=== PATIENT | female | born 1955 | race Caucasian/White ===

== ENCOUNTER 2019-07-05 17:59 | Emergency (ER) | payer MEDICARE, OTHER ==
[~2019-07-05] VITALS: Ht 166 cm; Wt 91.0 kg
[2019-07-05] MEDS ORDERED: FAMO20TA5 (18:10)
[2019-07-05] MEDS ORDERED: PARO40TA3 (18:10)
[2019-07-05] MEDS ORDERED: LISI10TA2 (18:10)
[2019-07-05] MEDS ORDERED: AMIT25TA9 (18:10)
[2019-07-05] MEDS ORDERED: ALPR0.5T7 (18:10)
--- NOTE | 2019-07-05 18:21 | ED Chest Pain ---
General Chief Complaint: Chest Pain Stated Complaint: CHEST PAIN Nursing Triage Note: Left sided chest pain starting while walking down stairs, radiating to left shoulder and back. Nursing Sepsis Screen: No Definite Risk Source: patient Exam Limitations: no limitations History of Present Illness Date Seen by Provider: July 05, 2019 Time Seen by Provider: 18:00 Initial Comments Patient is a 61 YO female with cardiac risk factors of HTN, smoking, obesity and family hx who presents with chest pain upon walking down steps. Pain is described sharp, pleuritic located over the left side of [place] radiating to left shoulder. Symptoms associated with shortness of breath that resolved prior to ED arrival. Patient also reports epigastric abdominal pain with nausea slipping and then at night. Denies leg pain, swelling. No history of DVT PE. No cough, sore throat, fever chills, sweats. No abdominal pain or tenderness. Previous cholecystectomy and hysterectomy. No other acute symptoms or complaints. Timing/Duration: 1/2 hour Severity/Quality: moderate Location: substernal, shoulder Radiation: shoulders Activities at Onset: other (walking) Prior CP/Workup: no prior chest pain ASA po MUSIC MANAGER: No NTG SL MUSIC MANAGER: No Associated Symptoms: denies symptoms Allergies and Home Medications Allergies Coded Allergies: Latex, Natural Rubber (Verified Allergy, Unknown, 07/05/19) fluconazole (Verified Allergy, Unknown, Rash, 07/05/19) Patient Home Medication List Home Medication List Reviewed: Yes Review of Systems Review of Systems Constitutional: no symptoms reported, see HPI EENTM: No Symptoms Reported Respiratory: See HPI Cardiovascular: See HPI Gastrointestinal: See HPI Genitourinary: No Symptoms Reported Musculoskeletal: no symptoms reported Skin: no symptoms reported Psychiatric/Neurological: No Symptoms Reported, See HPI Endocrine: No Symptoms Reported, See HPI Past Dbwdwzw-Txnirb-Lrzdaz Hx Past Med/Social Hx: Reviewed Nursing Past Med/Soc Hx Patient Social History Alcohol Use: Regular Use Alcohol Beverage of Choice: Beer Recreational Drug Use: No Smoking Status: Current Everyday Smoker Type Used: Cigarettes Recent Foreign Travel: No Contact w/Someone Who Travel: No Recent Infectious Disease Expo: No Past Medical History Surgeries: Yes Gallbladder, Hysterectomy Respiratory: No Cardiac: Yes Hypertension Neurological: No Genitourinary: No Gastrointestinal: Yes Gastroesophageal Reflux, Gall Bladder Disease Musculoskeletal: No Endocrine: No HEENT: No Cancer: No Psychosocial: Yes Anxiety, Depression Blood Disorders: No Physical Exam Vital Signs Vital Signs - First Documented 07/05/19 18:12 Temp 36.8 Pulse 99 Resp 20 B/P (MAP) 144/93 (110) Pulse Ox 90 O2 Delivery Room Air Capillary Refill : Less Than 3 Seconds Height, Weight, BMI Height: '" Weight: lbs. oz. 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 Norm as Tested Skin: Normal Color, Warm/Dry Focused Exam Sepsis Stage: Ruled Out Progress/Results/Core Measures Results/Orders Lab Results Laboratory Tests Test 07/05/19 18:15 Range/Units White Blood Count 7.1 4.3-11.0 10^3/uL Red Blood Count 4.64 4.35-5.85 10^6/uL Hemoglobin 15.7 11.5-16.0 G/DL Hematocrit 46 35-52 % Mean Corpuscular Volume 98 80-99 FL Mean Corpuscular Hemoglobin 34 25-34 PG Mean Corpuscular Hemoglobin Concent 35 32-36 G/DL Red Cell Distribution Width 13.4 10.0-14.5 % Platelet Count 230 130-400 10^3/uL Mean Platelet Volume 10.4 7.4-10.4 FL Neutrophils (%) (Auto) 51 42-75 % Lymphocytes (%) (Auto) 35 12-44 % Monocytes (%) (Auto) 11 0-12 % Eosinophils (%) (Auto) 2 0-10 % Basophils (%) (Auto) 1 0-10 % Neutrophils # (Auto) 3.6 1.8-7.8 X 10^3 Lymphocytes # (Auto) 2.5 1.0-4.0 X 10^3 Monocytes # (Auto) 0.8 0.0-1.0 X 10^3 Eosinophils # (Auto) 0.2 0.0-0.3 10^3/uL Basophils # (Auto) 0.1 0.0-0.1 10^3/uL D-Dimer 0.40 0.00-0.49 UG/ML Sodium Level 138 135-145 MMOL/L Potassium Level 4.1 3.6-5.0 MMOL/L Chloride Level 102 98-107 MMOL/L Carbon Dioxide Level 21 21-32 MMOL/L Anion Gap 15 H 5-14 MMOL/L Blood Urea Nitrogen 7 7-18 MG/DL Creatinine 1.05 0.60-1.30 MG/DL Estimat Glomerular Filtration Rate 53 BUN/Creatinine Ratio 7 Glucose Level 102 70-105 MG/DL Calcium Level 9.8 8.5-10.1 MG/DL Corrected Calcium 9.5 8.5-10.1 MG/DL Total Bilirubin 0.4 0.1-1.0 MG/DL Aspartate Amino Transf (AST/SGOT) 71 H 5-34 U/L Alanine Aminotransferase (ALT/SGPT) 103 H 0-55 U/L Alkaline Phosphatase 84 40-136 U/L Troponin I < 0.30 <0.30 NG/ML Total Protein 6.9 6.4-8.2 GM/DL Albumin 4.4 3.2-4.5 GM/DL Lipase 30 8-78 U/L My Orders Orders - CARLTON ALBARRAN DO Cbc With Automated Diff (07/05/19 18:10) Comprehensive Metabolic Panel (07/05/19 18:10) Lipase (07/05/19 18:10) Ekg Tracing (07/05/19 18:10) Chest 1 View Ap/Pa Only (07/05/19 18:10) Troponin I Fs (07/05/19 18:10) Probnp Fs (07/05/19 18:10) Fibrin Degradation Products (07/05/19 18:10) Famotidine Tablet (Pepcid Tablet) (07/05/19 18:45) Aspirin Tablet (Aspirin Tablet) (07/05/19 18:45) Ondansetron Oral Dissolve Tab (Zofran (07/05/19 18:49) Antacid Suspension (Mylanta Suspension (07/05/19 19:00) Lidocaine 2% Viscous 15 Ml (Xylocaine Vi (07/05/19 19:00) Lipase (07/05/19 18:56) Medications Given in ED Current Medications Medications Dose Ordered Sig/Arvin Route Start Time Stop Time Status Last Admin Dose Admin Al Hydrox/Mg Hydrox/Simethicone 30 ml ONCE ONCE PO 07/05/19 19:00 07/05/19 19:01 DC 07/05/19 18:55 30 ML Aspirin 325 mg ONCE ONCE PO 07/05/19 18:45 07/05/19 18:46 DC 07/05/19 18:56 325 MG Famotidine 20 mg ONCE ONCE PO 07/05/19 18:45 07/05/19 18:46 DC 07/05/19 18:56 20 MG Lidocaine HCl 5 ml ONCE ONCE PO 07/05/19 19:00 07/05/19 19:01 DC 07/05/19 18:55 5 ML Vital Signs/I&O 07/05/19 07/05/19 18:12 18:15 Temp 36.8 Pulse 99 Resp 20 B/P (MAP) 144/93 (110) Pulse Ox 90 O2 Delivery Room Air Room Air Blood Pressure Mean: 110 Departure Communication (Admissions) EKG: Sinus rhythm, inferior Q waves, no acute ST elevation. Limited interpretation due to baseline artifact. CXR:NAD Patient resting and asymptomatic in the emergency department. EKG, labs pending. Heart score 4. Conditions for transfer to cardiac facility for additional monitoring and testing. Patient declines transfer. States her symptoms resolved with treatment emergency Department prefers to follow-up with her PCP next week. She understands that underlying coronary disease is Ruled out and that she is at risk for HI, and disability. Troponin precautions reviewed. Patient verbalizes understanding and agreement discharge instructions prior to departure. Impression Primary Impression: Chest pain Disposition: HOME, SELF-CARE Condition: Improved Departure-Patient Inst. Patient Instructions: Chest Pain (DC) Add. Discharge Instructions: You were evaluated in the ED for chest pain. Lab, EKG and imaging were obtained and are nondiagnostic. Please increase Prilosec to 40 mg daily, take newly prescribed medications as directed, and eliminate alcohol and smoking. Follow up with your PCP early next week for additional screening. Return to the ED if new or worsening symptoms. All discharge instructions reviewed with patient and/or family. Voiced understanding. Scripts Metoclopramide HCl (Metoclopramide HCl) 10 Mg Tablet 10 MG PO QID, #40 TAB Prov: CARLTON ALBARRAN DO 07/05/19 Sucralfate (Carafate) 1 Gm Tablet 1 GM PO QID, #120 TAB Prov: CARLTON ALBARRAN DO 07/05/19 CARLTON ALBARRAN DO July 05, 2019 18:21
[2019-07-05 18:28] LABS: BASOPHILS # (AUTO) 0.1 10^3/uL (0.0-0.1); BASOPHILS % (AUTO) 1 % (0-10); EOSINOPHILS # (AUTO) 0.2 10^3/uL (0.0-0.3); EOSINOPHILS % (AUTO) 2 % (0-10); HEMATOCRIT 46 % (35-52); HEMOGLOBIN 15.7 G/DL (11.5-16.0); LYMPHOCYTES # (AUTO) 2.5 X 10^3 (1.0-4.0); LYMPHOCYTES % (AUTO) 35 % (12-44); MEAN CORPUSCULAR HEMOGLOBIN 34 PG (25-34); MEAN CORPUSCULAR HGB CONC 35 G/DL (32-36); MEAN CORPUSCULAR VOLUME 98 FL (80-99); MEAN PLATELET VOLUME 10.4 FL (7.4-10.4); MONOCYTES # (AUTO) 0.8 X 10^3 (0.0-1.0); MONOCYTES % (AUTO) 11 % (0-12); NEUTROPHILS # (AUTO) 3.6 X 10^3 (1.8-7.8); NEUTROPHILS % (AUTO) 51 % (42-75); PLATELET COUNT 230 10^3/uL (130-400); RED CELL DISTRIBUTION WIDTH 13.4 % (10.0-14.5); WHITE BLOOD COUNT 7.1 10^3/uL (4.3-11.0)
--- NOTE | 2019-07-05 18:33 | Diagnostic Imaging Report ---
INDICATION: Chest pain and palpitations FINDINGS: The heart and lungs appeared normal. No failure, effusion or pneumothorax. IMPRESSION: Negative Dictated by: Dictated on workstation # [id number]
[2019-07-05] MEDS ORDERED: ASPIRIN 325 MG (5 GR) TABLET PO ONE (18:45)
[2019-07-05] MEDS ORDERED: FAMOTIDINE 20 MG (PEPCID) TABLET PO ONE (18:45)
[2019-07-05] MEDS ORDERED: ONDANSETRON 4 MG (ZOFRAN) ORAL DISSOLVE TAB PO STA (18:49)
[2019-07-05 18:50] LABS: CARBON DIOXIDE 21 MMOL/L (21-32); CHLORIDE 102 MMOL/L (98-107); POTASSIUM 4.1 MMOL/L (3.6-5.0); SODIUM 138 MMOL/L (135-145)
[2019-07-05 18:51] LABS: ALANINE AMINOTRANSFERASE 103 U/L (0-55); ALBUMIN 4.4 GM/DL (3.2-4.5); ALKALINE PHOSPHATASE 84 U/L (40-136); BILIRUBIN,TOTAL 0.4 MG/DL (0.1-1.0); BUN/CREATININE RATIO 7; CALCIUM 9.8 MG/DL (8.5-10.1); CREATININE SERUM 1.05 MG/DL (0.60-1.30); GFR ESTIMATED 53; GLUCOSE 102 MG/DL (70-105); LIPASE 30 U/L (8-78); TOTAL PROTEIN 6.9 GM/DL (6.4-8.2)
[2019-07-05] MEDS ORDERED: ANTACID SUSP 30 ML UDC (MYLANTA) PO ONE (19:00)
[2019-07-05] MEDS ORDERED: LIDOCAINE 2% VISCOUS 15 ML UDC PO ONE (19:00)
--- OUTSIDE RECORDS SUMMARY | 2019-07-05 19:44 | XMS REPORT | Continuity of Care Document ---
Author Organization Unknown Address Unknown Phone Unavailable Allergies There is no data. Medications There is no data. Problems There is no data. Procedures There is no data. Results Test Result Range TESTOSTERONE, TOTAL (WOMEN, CHILDREN, HY POGONADAL MALES) - 07/17/18 10:09 TESTOSTERONE, TOTAL, LC/MS/MS 30 ng/dL 2-45 FREE TESTOSTERONE 1.7 pg/mL 0.1-6.4 PROGESTERONE - 07/25/18 14:19 PROGESTERONE 0.6 ng/mL NRG DHEA - 07/25/18 14:19 DHEA SULFATE 192 mcg/dL 12-133 ESTRONE, LC/MS/MS - 07/25/18 14:19 ESTRONE 65 pg/mL NRG PDM - 09 PANEL (PROFILE 1) - 06/12/19 11 :47 Prescribed Drug 1 Xanax(TM) NRG Creatinine 20.1 mg/dL > or = 20.0 pH 6.3 4.5-9.0 Oxidant NEGATIVE mcg/mL <200 Amphetamines NEGATIVE ng/mL <500 medMATCH Amphetamines CONSISTENT NRG Benzodiazepines POSITIVE ng/mL <100 Marijuana Metabolite NEGATIVE ng/mL <20 medMATCH Marijuana Metab CONSISTENT NRG Cocaine Metabolite NEGATIVE ng/mL <150 medMATCH Cocaine Metab CONSISTENT NRG Opiates NEGATIVE ng/mL <100 medMATCH Opiates CONSISTENT NRG Oxycodone NEGATIVE ng/mL <100 medMATCH Oxycodone CONSISTENT NRG COMMENT NRG Alphahydroxyalprazolam 58 ng/mL <25 medMATCH aOH alprazolam CONSISTENT NRG Alphahydroxymidazolam NEGATIVE ng/mL < 50 medMATCH aOH midazolam CONSISTENT NRG Alphahydroxytriazolam NEGATIVE ng/mL < 50 medMATCH aOH triazolam CONSISTENT NRG Aminoclonazepam NEGATIVE ng/mL <25 medMATCH Aminoclonazepam CONSISTENT NRG Hydroxyethylflurazepam NEGATIVE ng/mL <50 medMATCH OH,Et flurazepam CONSISTENT NR G Lorazepam NEGATIVE ng/mL <50 medMATCH Lorazepam CONSISTENT NRG Nordiazepam NEGATIVE ng/mL <50 medMATCH Nordiazepam CONSISTENT NRG Oxazepam NEGATIVE ng/mL <50 medMATCH Oxazepam CONSISTENT NRG Temazepam NEGATIVE ng/mL <50 medMATCH Temazepam CONSISTENT NRG Barbiturates NEGATIVE ng/mL <300 medMATCH Barbiturates CONSISTENT NRG Methadone Metabolite NEGATIVE ng/mL <100 medMATCH Methadone Metab CONSISTENT NRG Phencyclidine NEGATIVE ng/mL <25 medMATCH Phencyclidine CONSISTENT NRG Complete blood count (CBC) with automate d white blood cell (WBC) differential - 07/05/19 18:15 Blood leukocytes automated count (number/volume) 7.1 10*3/uL 4.3-11.0 Blood erythrocytes automated count (number/volume) 4.64 10*6/uL 4.35-5.85 Venous blood hemoglobin measurement (mass/volume) 15.7 g/dL 11.5-16.0 Blood hematocrit (volume fraction) 46 % 35-52 Automated erythrocyte mean corpuscular volume 98 [ foz_us] 80-99 Automated erythrocyte mean corpuscular h emoglobin (mass per erythrocyte) 34 pg 25-34 Automated erythrocyte mean corpuscular h emoglobin concentration measurement (mass/volume) 35 g/dL 32-36 Automated erythrocyte distribution width ratio 13. 4 % 10.0- 14.5 Automated blood platelet count (count/volume) 230 10*3/uL 130-400 Automated blood platelet mean volume measurement 10.4 [foz_us] 7.4-10.4 Automated blood neutrophils/100 leukocytes 51 % 42-75 Automated blood lymphocytes/100 leukocytes 35 % 12-44 Blood monocytes/100 leukocytes 11 % 0-12 Automated blood eosinophils/100 leukocytes 2 % 0-10 Automated blood basophils/100 leukocytes 1 % 0-10 Blood neutrophils automated count (number/volume) 3.6 10*3 1.8-7.8 Blood lymphocytes automated count (number/volume) 2.5 10*3 1.0-4.0 Blood monocytes automated count (number/volume) 0. 8 10*3 0.0-1.0 Automated eosinophil count 0.2 10*3/uL 0 .0-0.3 Automated blood basophil count (count/volume) 0.1 10*3/uL 0.0-0.1 Encounters ACCT No. Visit Date/Time Discharge Status Pt. Type Provider Facility Loc./Unit Complaint [id number] 10/26/2018 14:40:00 10/26/2018 23:59: 59 [facility] Outpatient [facility] [id number] 06/12/2019 11:20:00 Document Registration [id number] 07/25/2018 14:15:00 Document Registration [id number] 07/17/2018 09:45:00 Document Registration [id number] 07/05/2019 18:29:00 Document Registration
--- OUTSIDE RECORDS SUMMARY | 2019-07-05 19:44 | XMS REPORT ---
Author Author Jerod BAUTISTA Organization [facility] Address [address] [place] [address] Care Team Providers Care Seed Packer Name Role Phone BAUTISTALEANN KelleyRAJAN Unavailable PROBLEMS Type Condition ICD9-CM Code [id number] Code Onset Dates Condition S tatus SNOMED Code Problem Major depression F32.9 Apr, Active 601709870 Problem Depression F32.9 04 Dec, 2007 Active 179280 07 Problem Status post laparoscopic cholecystectomy Z90.49 09 Dec, 2016 Active 860417216 Problem Status post colonoscopy Z98.890 05 Oct, 2016 Act catie [id number] Problem Recurrent major depressive disorder, in partial remission F33.41 Active 73477479 Problem Hyperlipidemia E78.5 Dec, Active 55 979921 Problem Anxiety F41.9 Active 74879114 Problem AK (actinic keratosis) L57.0 05 Oct, 2016 Acti ve 200348760 Problem Anxiety state F41.1 June, Active 198 220040 Problem Essential hypertension I10 Active 82155603 Problem Major depressive disorder, single episode, unspecified F32.9 Active 57074532 Problem Amenorrhea N91.2 Active 17817880 ALLERGIES No Information ENCOUNTERS Encounter Location Date Diagnosis [address] [id number] Oct, Anxiety F41.[address] [address] Oct, Anxiety F41.9 and Recurrent major depres sive disorder, in partial remission F33.[address] [address] Sep, [facility] [address] [facility] [id number] [address] [place] [address] Sep, [address] [address] Sep, Anxiety disorder, unspecified F41.9 and Recurrent major depressive disorder, in partial remission F33.41 [facility] [address] [place] [address] Sep, [facility] [address] [place] [address] Aug, [facility] [address] [place] [address] Jul, [facility] [address] [place] [address] Jul, Amenorrhea N91.2 [facility] [address] [place] [address] Jul, Amenorrhea N91.2 [facility] [address] [place] [address] Jul, Amenorrhea N91.2 [facility] [address] [place] [address] Jul, [facility] [address] [place] [address] Jul, Annual physical exam Z00.00 and Amenorrh ea N91.2 [facility] [address] [place] [address] June, [facility] [address] [place] [address] June, Amenorrhea N91.2 [facility] [address] [place] [address] May, [facility] [address] [place] [address] May, Annual physical exam Z00.00 ; Recurrent UTI N39.0 ; Major depressive disorder, single episode, unspecified F32.9 ; Anxiety disorder, unspecified F41.9 ; Other hyperlipidemia E78.4 and Essential hypertension I10 [facility] [address] [place] [address] Apr, [facility] [address] [place] [address] Mar, [facility] [address] [place] [id number] [place] [address] Jan, [facility] [address] [facility] [id number] [address] [place] [address] Jan, [facility] [address] [facility] [id number] [address] [place] [address] Dec, [facility] [address] [facility] [id number] [address] [place] [address] Dec, IMMUNIZATIONS No Known Immunizations SOCIAL HISTORY Never Assessed REASON FOR VISIT Controlled med refill PLAN OF CARE VITAL SIGNS MEDICATIONS Medication Instructions Dosage Frequency Start Date End Date Duration S tat Alprazolam 0.5 MG Orally 3 times a day 1 tablet 8h Dec, 28 days Active RESULTS No Results PROCEDURES No Known procedures INSTRUCTIONS MEDICATIONS ADMINISTERED No Known Medications MEDICAL (GENERAL) HISTORY Type Description Date Medical History Hysterectomy Medical History anxiety Medical History depression Medical History acid reflux Surgical History hysterectomy, vaginal Surgical History cholecystectomy Hospitalization History Surgery(s) only
[2019-07-05] MEDS ORDERED: SUCR1TAB36 PO (19:59)
[2019-07-05] MEDS ORDERED: METO10TA3 PO (19:59)
[2019-07-05 20:01] VITALS: BP 119/76
== END 2019-07-05 20:08 | disposition home or self-care (01) ==
LOC: EDUNIT# 17:59 → ER FS 18:01
DX: R07.2 Precordial pain (principal); I10 Essential (primary) hypertension; K21.9 Gastro-esophageal reflux disease without esophagitis; E66.9 Obesity, unspecified; F17.210 Nicotine dependence, cigarettes, uncomplicated; Z68.33 Body mass index [BMI] 33.0-33.9, adult; Z91.040 Latex allergy status; Z88.8 Allergy status to other drugs, medicaments and biological substances
CPT/HCPCS: 36415; 71045; 80053; 83690; 83880; 84484; 85025; 85379

== ENCOUNTER 2020-11-18 19:10 | Emergency (ER) | payer MEDICARE ==
[~2020-11-18] VITALS: Ht 167.7 cm; Wt 90.7 kg
[~2020-11-18 19:10] MED LIST: ALPR0.5T7; AMIT25TA9; FAMO20TA5; LISI10TA25; MTC10T PO; PARO40TA3; SUCR1TAB36 PO
--- OUTSIDE RECORDS SUMMARY | 2020-11-18 19:16 | XMS REPORT | Clinical Summary ---
Author Author [facility] Organization [facility] Address Unknown Phone Unavailable Care Team Providers Care Corporate Operations Compliance Manager Name Role Phone Maximo Leonard MD PCP Unavailable Jovan De La Garza DO 6 Lillian Escalante MD Unavailable Unavailable Kimber Liu PA-C Unavailable Source Comments Some departments are not documenting in the electronic medical record. If you d o not see the information that you expected, contact Release of Information in Pending sale to [facility] Information Management department at [phone] for further assistan ce in locating additional records.[facility] Allergies No Known Active Allergies Medications End Date Status Medication Sig Dispensed Refills Start Date Active ALPRAZolam (XANAX) 0.5 mg Take 0.5 mg 0 tablet by mouth twice daily. Active estradiol (ESTRACE) 1 mg Take 1 mg by 0 tablet mouth daily. Active PARoxetine (PAXIL) 20 mg Take 20 mg by 0 tablet mouth daily. Active COQ10 (UBIQUINOL) PO Take 50 mg by 0 mouth daily. Active OMEGA-3 FATTY ACIDS/FISH Take 1,200 mg 0 OIL (OMEGA 3 FISH OIL PO) by mouth daily. Active MULTIVITAMIN PO Take by 0 mouth daily. 1200 mg calcium with Magnesium Active Problems Not on file Social History Date Tobacco Use Types Packs/Day Years Used Never Assessed Sex Assigned at Date Recorded Not on file Last Filed Vital Signs Reading Time Taken Comments Vital Sign 136/85 07/02/2013 10:18 AM CDT Blood Pressure 75 07/02/2013 10:18 AM CDT Pulse 36.7 C (98 F) 07/02/2013 10:18 AM CDT Temperature - - Respiratory Rate 98% 07/02/2013 10:18 AM CDT Oxygen Saturation - - Inhaled Oxygen Concentration 82.8 kg (182 lb 9.6 oz) 07/02/2013 10:18 AM CDT Weight 168 cm (5' 6.14") 07/02/2013 10:18 AM CDT Height 29.35 07/02/2013 10:18 AM CDT Body Mass Index Plan of Treatment Health Maintenance Due Date Last Done Comments HIV SCREENING 07/26/1970 DTAP/TDAP VACCINES (1 - 07/26/1973 Tdap) HEPATITIS C SCREENING 07/26/1973 PHYSICAL (COMPREHENSIVE) 07/26/1973 EXAM BREAST CANCER SCREENING 1995 COLORECTAL CANCER 07/26/2005 SCREENING SHINGLES RECOMBINANT 07/26/2005 VACCINE (1 of 2) OSTEOPOROSIS 07/26/2020 SCREENING/MONITORING PNEUMONIA (PPSV23) 07/26/2020 VACCINE (1 of 1 - PPSV23) INFLUENZA VACCINE 09/13/2020 Results Not on filefrom Last 3 Months Insurance Type Payer Benefit Subscriber ID Effective Phone Address Plan / Dates Group Indemnity [facility] [id number] 2019-P CHOICE/CHO resent ICE PLUS [phone] Advance Directives 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
--- NOTE | 2020-11-18 19:18 | ED Neurological Problem ---
General Stated Complaint: CONFUSION History of Present Illness Date Seen by Provider: Nov 18, 2020 Time Seen by Provider: 19:18 Initial Comments 65-year-old female brought in by EMS. Patient is brought in due to confusion. She claims "that she can remember anything" patient is a known alcoholic and drinks daily. Family suspects it may be she drank significantly more than normal. Patient complains of some mild belly discomfort but otherwise no acute findings besides "she cannot remember anything" patient seems to be very c alculated with her answers and is difficult to obtain much information from her Allergies and Home Medications Allergies Coded Allergies: Latex, Natural Rubber (Verified Allergy, Unknown, 07/05/19) fluconazole (Verified Allergy, Unknown, Rash, 07/05/19) Patient Home Medication List Home Medication List Reviewed: Yes Alprazolam (Alprazolam) 0.5 Mg Tablet, (Reported) Entered as Reported by: JAYME TILLMAN on 07/05/191809 Amitriptyline HCl (Amitriptyline HCl) 25 Mg Tablet, (Reported) Entered as Reported by: JAYME TILLMAN on 07/05/191809 Famotidine (Famotidine) 20 Mg Tablet, (Reported) Entered as Reported by: JAYME TILLMAN on 07/05/191809 Lisinopril (Lisinopril) 10 Mg Tablet, (Reported) Entered as Reported by: JAYME TILLMAN on 07/05/191809 Metoclopramide HCl (Metoclopramide HCl) 10 Mg Tablet, 10 MG PO QID Prescribed by: CARLTON ALBARRAN on 07/05/191958 Paroxetine HCl (Paroxetine HCl) 40 Mg Tablet, (Reported) Entered as Reported by: JAYME TILLMAN on 07/05/191809 Sucralfate (Carafate) 1 Gm Tablet, 1 GM PO QID Prescribed by: CARLTON ALBARRAN on 07/05/191958 Review of Systems Review of Systems Constitutional: see HPI Eyes: No Symptoms Reported Ears, Nose, Mouth, Throat: no symptoms reported Respiratory: no symptoms reported Cardiovascular: no symptoms reported Gastrointestinal: see HPI; No diarrhea, No nausea, No vomiting Musculoskeletal: no symptoms reported Skin: no symptoms reported Psychiatric/Neurological: See HPI Endocrine: No Symptoms Reported Past Ohaitiq-Cnmzes-Buhaqy Hx Past Medical History Surgeries: Yes Gallbladder, Hysterectomy Respiratory: No Cardiac: Yes Hypertension Neurological: No Genitourinary: No Gastrointestinal: Yes Gastroesophageal Reflux, Gall Bladder Disease Musculoskeletal: No Endocrine: No HEENT: No Cancer: No Psychosocial: Yes Anxiety, Depression Blood Disorders: No Physical Exam Vital Signs Vital Signs - First Documented 11/18/20 19:11 Temp 36.7 Pulse 63 Resp 18 B/P (MAP) 141/84 (103) Pulse Ox 98 O2 Delivery Room Air Capillary Refill : Height, Weight, BMI Height: '" Weight: lbs. oz. kg; 33.00 BMI Method: General Appearance: WD/WN, no apparent distress, other (Intoxicated) HEENT: PERRL/EOMI Extremities: normal range of motion Neurologic/Psychiatric: alert, normal mood/affect, other (Patient does not answer person place or time stating "she cannot remember") Crainal Nerves: normal hearing, normal speech Motor/Sensory: no motor deficit, no sensory deficit, no pronator drift Skin: normal color, warm/dry Progress/Results/Core Measures Results/Orders Lab Results Laboratory Tests Test 11/18/20 19:25 11/18/20 19:35 11/18/20 20:23 Range/Units White Blood Count 8.1 4.3-11.0 10^3/uL Red Blood Count 4.20 3.80-5.11 10^6/uL Hemoglobin 13.4 11.5-16.0 g/dL Hematocrit 38 35-52 % Mean Corpuscular Volume 91 80-99 fL Mean Corpuscular Hemoglobin 32 25-34 pg Mean Corpuscular Hemoglobin Concent 35 32-36 g/dL Red Cell Distribution Width 13.6 10.0-14.5 % Platelet Count 217 130-400 10^3/uL Mean Platelet Volume 10.3 9.0-12.2 fL Immature Granulocyte % (Auto) 0 % Neutrophils (%) (Auto) 51 42-75 % Lymphocytes (%) (Auto) 38 12-44 % Monocytes (%) (Auto) 8 0-12 % Eosinophils (%) (Auto) 2 0-10 % Basophils (%) (Auto) 1 0-10 % Neutrophils # (Auto) 4.1 1.8-7.8 X 10^3 Lymphocytes # (Auto) 3.1 1.0-4.0 X 10^3 Monocytes # (Auto) 0.7 0.0-1.0 X 10^3 Eosinophils # (Auto) 0.1 0.0-0.3 10^3/uL Basophils # (Auto) 0.1 0.0-0.1 10^3/uL Immature Granulocyte # (Auto) 0.0 0.0-0.1 10^3/uL Sodium Level 134 L 135-145 MMOL/L Potassium Level 4.2 3.6-5.0 MMOL/L Chloride Level 99 98-107 MMOL/L Carbon Dioxide Level 26 21-32 MMOL/L Anion Gap 9 5-14 MMOL/L Blood Urea Nitrogen 6 L 7-18 MG/DL Creatinine 0.84 0.60-1.30 MG/DL Estimat Glomerular Filtration Rate 68 BUN/Creatinine Ratio 7 Glucose Level 79 70-105 MG/DL Calcium Level 9.8 8.5-10.1 MG/DL Corrected Calcium 9.7 8.5-10.1 MG/DL Magnesium Level 1.7 1.6-2.4 MG/DL Total Bilirubin 0.2 0.1-1.0 MG/DL Aspartate Amino Transf (AST/SGOT) 20 5-34 U/L Alanine Aminotransferase (ALT/SGPT) 22 0-55 U/L Alkaline Phosphatase 76 40-136 U/L Total Protein 6.2 L 6.4-8.2 GM/DL Albumin 4.1 3.2-4.5 GM/DL Lipase 19 8-78 U/L Serum Alcohol 23 H <10 MG/DL Urine Color PALE YELLOW Urine Clarity CLEAR Urine pH 6.0 5-9 Urine Specific [place] <=1.005 1.016-1.022 Urine Protein NEGATIVE NEGATIVE Urine Glucose (UA) NEGATIVE NEGATIVE Urine Ketones NEGATIVE NEGATIVE Urine Nitrite NEGATIVE NEGATIVE Urine Bilirubin NEGATIVE NEGATIVE Urine Urobilinogen 0.2 < = 1.0 MG/DL Urine Leukocyte Esterase NEGATIVE NEGATIVE Urine RBC (Auto) NEGATIVE NEGATIVE Urine RBC NONE /HPF Urine WBC NONE /HPF Urine Squamous Epithelial Cells RARE /HPF Urine Crystals NONE /LPF Urine Bacteria NEGATIVE /HPF Urine Casts NONE /LPF Urine Mucus NEGATIVE /LPF Urine Culture Indicated NO Urine Opiates Screen NEGATIVE NEGATIVE Urine Oxycodone Screen NEGATIVE NEGATIVE Urine Methadone Screen NEGATIVE NEGATIVE Urine Propoxyphene Screen NEGATIVE NEGATIVE Urine Barbiturates Screen NEGATIVE NEGATIVE Ur Tricyclic Antidepressants Screen NEGATIVE NEGATIVE Urine Phencyclidine Screen NEGATIVE NEGATIVE Urine Amphetamines Screen NEGATIVE NEGATIVE Urine Methamphetamines Screen NEGATIVE NEGATIVE Urine Benzodiazepines Screen POSITIVE H NEGATIVE Urine Cocaine Screen NEGATIVE NEGATIVE Urine Cannabinoids Screen NEGATIVE NEGATIVE Ammonia 34 H 11-32 UMOL/L Thyroid Stimulating Hormone (TSH) 2.47 0.35-4.94 UIU/ML My Orders Orders - ROSMERY BETANCUR DO Ct Head Wo (11/18/20 19:18) Alcohol (11/18/20 19:18) Cbc With Automated Diff (11/18/20 19:18) Comprehensive Metabolic Panel (11/18/20 19:18) Drug Screen Stat (Urine) (11/18/20 19:18) Lipase (11/18/20 19:18) Magnesium (11/18/20 19:18) Ua Culture If Indicated (11/18/20:18) Ammonia (11/18/20 20:33) Thyroid Stimulating Hormone (11/18/20 20:33) Vital Signs/I&O 11/18/20 11/18/20 19:11 23:26 Temp 36.7 36.7 Pulse 63 72 Resp 18 12 B/P (MAP) 141/84 (103) 116/68 Pulse Ox 98 95 O2 Delivery Room Air Room Air Progress Progress Note : Progress Note Patient's confusion spontaneously resolved. I was unable to find any metabolic or physical reason for her mental state. I do suspect that there is an underlying psychiatric component. Recommended to her and her that they follow-up with her primary care provider. They can consider an outpatient MRI along with an outpatient neurology and psychology evaluation. Patient was stable and discharged home Diagnostic Imaging Diagonstic Imaging: CT Plain Films/CT/US/NM/MRI: head Comments Date of Exam:11/18/20 CT HEAD WO PROCEDURE: CT head without contrast. TECHNIQUE: Multiple contiguous axial images were obtained through the brain without the use of intravenous contrast. Auto Exposure Controls were utilized during the CT exam to meet ALARA standards for radiation dose reduction. INDICATION: Confusion. COMPARISON: None. FINDINGS: There is no hemorrhage, hydrocephalus, edema, mass, mass effect or evidence for an elevation of intracranial pressures. The basilar cisterns patent. There is no sulcal effacement. The schultz-white matter differentiation is maintained. The orbits, sinuses and calvarium are nonacute. IMPRESSION: No hemorrhage, edema or acute appearing abnormality. Departure Impression Primary Impression: Episode of confusion Disposition: 01 HOME, SELF-CARE Condition: Stable Departure-Patient Inst. Referrals: RIMMA PEDRAZA APRN (PCP/Family) Primary Care Physician Patient Instructions: Delirium (Confusion) Add. Discharge Instructions: follow up with your primary care provider in the next 1-2 days for further outpt evaluation. ROSMERY BETANCUR DO Nov 18, 2020 19:18
[2020-11-18 19:30] LABS: BASOPHILS % (AUTO) 1 % (0-10); EOSINOPHILS % (AUTO) 2 % (0-10); HEMATOCRIT 38 % (35-52); HEMOGLOBIN 13.4 g/dL (11.5-16.0); LYMPHOCYTES # (AUTO) 3.1 X 10^3 (1.0-4.0); LYMPHOCYTES % (AUTO) 38 % (12-44); MEAN CORPUSCULAR HEMOGLOBIN 32 pg (25-34); MEAN CORPUSCULAR HGB CONC 35 g/dL (32-36); MEAN CORPUSCULAR VOLUME 91 fL (80-99); MEAN PLATELET VOLUME 10.3 fL (9.0-12.2); MONOCYTES % (AUTO) 8 % (0-12); NEUTROPHILS # (AUTO) 4.1 X 10^3 (1.8-7.8); NEUTROPHILS % (AUTO) 51 % (42-75); PLATELET COUNT 217 10^3/uL (130-400); WHITE BLOOD COUNT 8.1 10^3/uL (4.3-11.0)
[2020-11-18 19:31] LABS: BASOPHILS # (AUTO) 0.1 10^3/uL (0.0-0.1); EOSINOPHILS # (AUTO) 0.1 10^3/uL (0.0-0.3); MONOCYTES # (AUTO) 0.7 X 10^3 (0.0-1.0)
--- NOTE | 2020-11-18 19:44 | Diagnostic Imaging Report ---
PROCEDURE: CT head without contrast. TECHNIQUE: Multiple contiguous axial images were obtained through the brain without the use of intravenous contrast. Auto Exposure Controls were utilized during the CT exam to meet ALARA standards for radiation dose reduction. INDICATION: Confusion. COMPARISON: None. FINDINGS: There is no hemorrhage, hydrocephalus, edema, mass, mass effect or evidence for an elevation of intracranial pressures. The basilar cisterns patent. There is no sulcal effacement. The schultz-white matter differentiation is maintained. The orbits, sinuses and calvarium are nonacute. IMPRESSION: No hemorrhage, edema or acute appearing abnormality. Dictated by: Dictated on workstation # [id number]
[2020-11-18 20:02] LABS: AMPHETAMINE SCREEN, URINE NEGATIVE (NEGATIVE); BARBITURATE SCREEN URINE NEGATIVE (NEGATIVE); BENZODIAZEPINES SCREEN URINE POSITIVE (NEGATIVE); CANNABINOID SCREEN, URINE NEGATIVE (NEGATIVE); COCAINE SCREEN URINE NEGATIVE (NEGATIVE); METHADONE STAT NEGATIVE (NEGATIVE); METHAMPHETAMINE SCREEN URINE S NEGATIVE (NEGATIVE); OPIATE SCREEN URINE NEGATIVE (NEGATIVE); OXYCODONE STAT NEGATIVE (NEGATIVE); PROPOXYPHENE STAT NEGATIVE (NEGATIVE); TRICYCLIC ANTIDEPRESSANTS SCRE NEGATIVE (NEGATIVE)
[2020-11-18 20:03] LABS: BACTERIA,URINE NEGATIVE /HPF; BILIRUBIN,URINE NEGATIVE (NEGATIVE); CLARITY,URINE CLEAR; COLOR,URINE PALE YELLOW; GLUCOSE, URINE (UA) NEGATIVE (NEGATIVE); KETONES,URINE NEGATIVE (NEGATIVE); LEUKOCYTE ESTERASE ,URINE NEGATIVE (NEGATIVE); NITRITE,URINE NEGATIVE (NEGATIVE); PROTEIN,URINE NEGATIVE (NEGATIVE); SQUAMOUS EPITHELIAL CELL,UR RARE /HPF
[2020-11-18 20:07] LABS: POTASSIUM 4.2 MMOL/L (3.6-5.0)
[2020-11-18 20:08] LABS: ALBUMIN 4.1 GM/DL (3.2-4.5); BILIRUBIN,TOTAL 0.2 MG/DL (0.1-1.0); CALCIUM 9.8 MG/DL (8.5-10.1); CREATININE SERUM 0.84 MG/DL (0.60-1.30); MAGNESIUM 1.7 MG/DL (1.6-2.4); TOTAL PROTEIN 6.2 GM/DL (6.4-8.2)
[2020-11-18 23:26] VITALS: BP 116/68
== END 2020-11-18 22:10 | disposition home or self-care (01) ==
LOC: EDUNIT# 19:10 → ER FS 19:12
DX: R41.0 Disorientation, unspecified (principal); I10 Essential (primary) hypertension; K21.9 Gastro-esophageal reflux disease without esophagitis; F41.9 Anxiety disorder, unspecified; F32.9 Major depressive disorder, single episode, unspecified; Z79.899 Other long term (current) drug therapy
CPT/HCPCS: 36415; 70450; 80053; 80306; 81000; 82140; 83690; 83735; 84443; 85025; 99284; G0480; 80320

== ENCOUNTER → 2021-01-18 | Outpatient (CLI) | payer MEDICARE ==
--- NOTE | 2021-01-18 13:15 | Diagnostic Imaging Report ---
PROCEDURE: MR imaging of the brain without contrast. TECHNIQUE: Multiplanar, multisequence MR imaging of the brain was performed without contrast. INDICATION: Memory loss problems. COMPARISON: No prior MRI studies are available for comparison. FINDINGS: Ventricular size and sulcal pattern appear within normal limits. There are occasional periventricular and subcortical white matter signal foci, perhaps on the basis of chronic microvascular ischemia. The normal expected flow-voids within the carotid siphons are seen. No acute intra-axial or extra-axial hemorrhage is detected. No diffusion restriction is identified. Corpus callosum is unremarkable. The sella and parasellar structures are unremarkable. IMPRESSION: Changes of chronic microvascular ischemia. The study is otherwise unremarkable. No acute feature is identified. Dictated by: Dictated on workstation # [id number]
== END ==
LOC: RAD 09:50
PROVIDERS: ATTEND Internal Medicine
DX: I67.82 Cerebral ischemia (principal); G45.9 Transient cerebral ischemic attack, unspecified
CPT/HCPCS: 70551

== ENCOUNTER → 2021-01-19 | Outpatient (CLI) | payer MEDICARE ==
[2021-01-19 10:44] LABS: BASOPHILS % (AUTO) 1 % (0-10); EOSINOPHILS % (AUTO) 1 % (0-10); HEMATOCRIT 43 % (35-52); HEMOGLOBIN 14.9 g/dL (11.5-16.0); LYMPHOCYTES % (AUTO) 29 % (12-44); MEAN CORPUSCULAR HEMOGLOBIN 32 pg (25-34); MEAN CORPUSCULAR HGB CONC 35 g/dL (32-36); MEAN CORPUSCULAR VOLUME 93 fL (80-99); MEAN PLATELET VOLUME 10.8 fL (9.0-12.2); MONOCYTES % (AUTO) 7 % (0-12); NEUTROPHILS % (AUTO) 62 % (42-75); PLATELET COUNT 212 10^3/uL (130-400); WHITE BLOOD COUNT 6.8 10^3/uL (4.3-11.0)
[2021-01-19 10:45] LABS: BASOPHILS # (AUTO) 0.1 10^3/uL (0.0-0.1); EOSINOPHILS # (AUTO) 0.1 10^3/uL (0.0-0.3); MONOCYTES # (AUTO) 0.5 X 10^3 (0.0-1.0); NEUTROPHILS # (AUTO) 4.2 X 10^3 (1.8-7.8)
[2021-01-19 11:14] LABS: PROTHROMBIN TIME PATIENT 13.2 SEC (12.2-14.7)
[2021-01-19 11:38] LABS: ERYTHROCYTE SEDIMENTATION RATE 3 MM/HR (0-30)
[2021-01-19 11:48] LABS: CARBON DIOXIDE 27 MMOL/L (21-32); CHLORIDE 98 MMOL/L (98-107); POTASSIUM 4.6 MMOL/L (3.6-5.0); SODIUM 136 MMOL/L (135-145)
[2021-01-19 11:49] LABS: ALANINE AMINOTRANSFERASE 27 U/L (0-55); ALBUMIN 4.3 GM/DL (3.2-4.5); ALKALINE PHOSPHATASE 82 U/L (40-136); BILIRUBIN,TOTAL 0.5 MG/DL (0.1-1.0); BUN/CREATININE RATIO 11; CALCIUM 9.8 MG/DL (8.5-10.1); CREATININE SERUM 0.91 MG/DL (0.60-1.30); GFR ESTIMATED 62; GLUCOSE 93 MG/DL (70-105)
[2021-01-19 15:39] LABS: FREE T4 (FREE THYROXINE) 1.07 NG/DL (0.70-1.48)
== END ==
LOC: LAB FS 09:13
PROVIDERS: ATTEND Internal Medicine
DX: E56.9 Vitamin deficiency, unspecified (principal); D64.9 Anemia, unspecified; G93.40 Encephalopathy, unspecified; R41.3 Other amnesia; R63.4 Abnormal weight loss
CPT/HCPCS: 36415; 80053; 82607; 82746; 82977; 83540; 83550; 84439; 84443; 85025; 85610; 85652; 86141; 86592

== ENCOUNTER → 2021-01-22 | Outpatient (CLI) | payer MEDICARE | LOC: LAB FS 07:54 | PROVIDERS: ATTEND Internal Medicine | DX: D64.9 Anemia, unspecified (principal); G93.40 Encephalopathy, unspecified; E56.9 Vitamin deficiency, unspecified; R63.4 Abnormal weight loss; R41.3 Other amnesia | CPT/HCPCS: 36415; 82728; 84207; 84425 ==

== ENCOUNTER 2021-03-23 08:56 | Emergency (ER) | payer MEDICARE ==
[~2021-03-23] VITALS: Ht 175 cm; Wt 90.7 kg
--- NOTE | 2021-03-23 09:00 | ED Chest Pain ---
General Stated Complaint: SYNCOPAL EPISODE; RT KNEE INJ History of Present Illness Date Seen by Provider: Mar 23, 2021 Time Seen by Provider: 09:14 Initial Comments 65-year-old female presents with syncope x2 this morning. They report that she was up her island in the kitchen when she had a brief episode. She then had a step back little bit and then had another brief episode. She denies any chest pain, nausea vomiting or other systemic complaints. Patient had a prior episode about 2 weeks ago. At that time she sprained her right knee. She may have sprained it again today. Patient has no other systemic complaints. Patient does have a history of some chronic mental and physical disorder due to past alcohol abuse Allergies and Home Medications Allergies Coded Allergies: Latex, Natural Rubber (Verified Allergy, Unknown, 07/05/19) fluconazole (Verified Allergy, Unknown, Rash, 07/05/19) Patient Home Medication List Home Medication List Reviewed: Yes Alprazolam (Alprazolam) 0.5 Mg Tablet, (Reported) Entered as Reported by: JAYME TILLMAN on 07/05/191809 Amitriptyline HCl (Amitriptyline HCl) 25 Mg Tablet, (Reported) Entered as Reported by: JAYME TILLMAN on 07/05/191809 Famotidine (Famotidine) 20 Mg Tablet, (Reported) Entered as Reported by: JAYME TILLMAN on 07/05/191809 Lisinopril (Lisinopril) 10 Mg Tablet, (Reported) Entered as Reported by: JAYME TILLMAN on 07/05/191809 Metoclopramide HCl (Metoclopramide HCl) 10 Mg Tablet, 10 MG PO QID Prescribed by: CARLTON ALBARRAN on 07/05/191958 Paroxetine HCl (Paroxetine HCl) 40 Mg Tablet, (Reported) Entered as Reported by: JAYME TILLMAN on 07/05/191809 Sucralfate (Carafate) 1 Gm Tablet, 1 GM PO QID Prescribed by: CARLTON ALBARRAN on 07/05/191958 Review of Systems Review of Systems Constitutional: No chills, No fever Respiratory: Denies Cough, Denies Shortness of Air Cardiovascular: Denies Chest Pain, Denies Irregular Heart Rate; Lightheadedness; Denies Palpitations; Syncope Gastrointestinal: Denies Abdominal Pain, Denies Nausea, Denies Vomiting Musculoskeletal: no symptoms reported Skin: no symptoms reported Psychiatric/Neurological: No Symptoms Reported Past Utenvyk-Gtkdlu-Mprhra Hx Immunizations Up To Date First/Initial COVID19 Vaccinat: n/a Second COVID19 Vaccination Leonel: n/a Third COVID19 Vaccination Date: n/a Past Medical History Surgeries: Yes Gallbladder, Hysterectomy Respiratory: No Cardiac: Yes Hypertension Neurological: No Genitourinary: No Gastrointestinal: Yes Gastroesophageal Reflux, Gall Bladder Disease Musculoskeletal: No Endocrine: No HEENT: No Cancer: No Psychosocial: Yes Anxiety, Depression Blood Disorders: No Physical Exam Vital Signs Vital Signs - First Documented 03/23/21 09:15 Temp 36.2 Pulse 78 Resp 18 B/P (MAP) 101/79 (86) Pulse Ox 96 O2 Delivery Room Air Capillary Refill : Height, Weight, BMI Height: '" Weight: lbs. oz. kg; 32.00 BMI Method: General Appearance: No Apparent Distress Neck: Non Tender, Supple Respiratory: Chest Non Tender, Lungs Clear, Normal Breath Sounds Cardiovascular: Regular Rate, Rhythm, No Edema Gastrointestinal: Non Tender, Soft Extremity: Normal Capillary Refill, Normal Inspection, Normal Range of Motion Neurologic/Psychiatric: Alert, No Motor/Sensory Deficits, Normal Mood/Affect, executive marketing assistant II-XII Norm as Tested Skin: Normal Color, Warm/Dry Progress/Results/Core Measures Results/Orders Lab Results Laboratory Tests Test 03/23/21 09:32 03/23/21 10:58 Range/Units White Blood Count 9.5 4.3-11.0 10^3/uL Red Blood Count 4.63 3.80-5.11 10^6/uL Hemoglobin 14.8 11.5-16.0 g/dL Hematocrit 42 35-52 % Mean Corpuscular Volume 92 80-99 fL Mean Corpuscular Hemoglobin 32 25-34 pg Mean Corpuscular Hemoglobin Concent 35 32-36 g/dL Red Cell Distribution Width 12.2 10.0-14.5 % Platelet Count 222 130-400 10^3/uL Mean Platelet Volume 10.5 9.0-12.2 fL Immature Granulocyte % (Auto) 0 % Neutrophils (%) (Auto) 78 H 42-75 % Lymphocytes (%) (Auto) 14 12-44 % Monocytes (%) (Auto) 6 0-12 % Eosinophils (%) (Auto) 1 0-10 % Basophils (%) (Auto) 0 0-10 % Neutrophils # (Auto) 7.4 1.8-7.8 10^3/uL Lymphocytes # (Auto) 1.3 1.0-4.0 10^3/uL Monocytes # (Auto) 0.6 0.0-1.0 10^3/uL Eosinophils # (Auto) 0.1 0.0-0.3 10^3/uL Basophils # (Auto) 0.0 0.0-0.1 10^3/uL Immature Granulocyte # (Auto) 0.0 0.0-0.1 10^3/uL Sodium Level 134 L 135-145 MMOL/L Potassium Level 3.8 3.6-5.0 MMOL/L Chloride Level 98 98-107 MMOL/L Carbon Dioxide Level 24 21-32 MMOL/L Anion Gap 12 5-14 MMOL/L Blood Urea Nitrogen 10 7-18 MG/DL Creatinine 0.74 0.60-1.30 MG/DL Estimat Glomerular Filtration Rate 90 BUN/Creatinine Ratio 14 Glucose Level 131 H 70-105 MG/DL Calcium Level 9.8 8.5-10.1 MG/DL Corrected Calcium 9.8 8.5-10.1 MG/DL Total Bilirubin 0.6 0.1-1.0 MG/DL Aspartate Amino Transf (AST/SGOT) 27 5-34 U/L Alanine Aminotransferase (ALT/SGPT) 48 0-55 U/L Alkaline Phosphatase 82 40-136 U/L Troponin I < 0.30 <0.30 NG/ML C-Reactive Protein < 0.30 <0.50 MG/DL Total Protein 6.8 6.4-8.2 GM/DL Albumin 4.0 3.2-4.5 GM/DL Urine Color YELLOW Urine Clarity CLEAR Urine pH 7.0 5-9 Urine Specific [place] 1.020 1.016-1.022 Urine Protein NEGATIVE NEGATIVE Urine Glucose (UA) NEGATIVE NEGATIVE Urine Ketones TRACE H NEGATIVE Urine Nitrite NEGATIVE NEGATIVE Urine Bilirubin NEGATIVE NEGATIVE Urine Urobilinogen 0.2 < = 1.0 MG/DL Urine Leukocyte Esterase NEGATIVE NEGATIVE Urine RBC (Auto) NEGATIVE NEGATIVE Urine RBC NONE /HPF Urine WBC 2-5 /HPF Urine Squamous Epithelial Cells 10-25 H /HPF Urine Crystals NONE /LPF Urine Bacteria MODERATE H /HPF Urine Casts NONE /LPF Urine Mucus SMALL H /LPF Urine Culture Indicated NO My Orders Orders - BETANCUR,ROSMERY L DO Cbc With Automated Diff (03/23/21 09:20) Comprehensive Metabolic Panel (03/23/21 09:20) Ua Culture If Indicated (03/23/21 09:20) Crp Fs (03/23/21 09:20) Troponin I Fs (03/23/21 09:20) Chest 1 View Ap/Pa Only (03/23/21 09:20) Ct Head Wo (03/23/21 09:20) Ekg Tracing (03/23/21 09:20) Monitor-Rhythm Ecg Trace Only (03/23/21 09:20) Vital Signs/I&O 03/23/21 03/23/21 03/23/21 09:15 09:45 12:30 Temp 36.2 36.1 Pulse 78 75 78 78 78 Resp 18 16 B/P (MAP) 101/79 (86) 98/72 (81) 100/62 101/72 (82) 104/72 (83) Pulse Ox 96 99 O2 Delivery Room Air Room Air Progress Progress Note : Progress Note Patient with no further syncope events while here in the ER. Patient had no acute findings on her work-up patient was just recently diagnosed with known Warnicke encephalopathy. I suspect that her syncope might be related to her underlying effects of her chronic alcohol use. Patient was instructed to continue her current vitamins and medications as prescribed and follow-up with her primary care provider for further outpatient evaluation Initial ECG Impression Date: Mar 23, 2021 Initial ECG Impression Time: 09:27 Initial ECG Rate: 70 Initial ECG Rhythm: Normal Sinus Comment no acute changes Diagnostic Imaging Diagonstic Imaging: CT Plain Films/CT/US/NM/MRI: head Comments CT HEAD WO INDICATION: Syncope. TECHNIQUE: Routine non contrast-enhanced axial images were obtained from the skull base to the vertex. Auto Exposure Controls were utilized during the CT exam to meet ALARA standards for radiation dose reduction COMPARISON: 11/18/2020 FINDINGS: The ventricles and cortical sulci are diffusely prominent, compatible with age-related volume loss. There is no midline shift or mass-effect. No acute intra-axial hemorrhage is seen. There are no abnormal areas of increased or decreased density to suggest acute hemorrhage or edema. No extra-axial masses or collections are present. The bony calvarium is intact. The visualized paranasal sinuses are unremarkable. The mastoid air cells are clear. IMPRESSION: 1. No acute intracranial abnormality. No CT evidence of mass, acute infarct or intracranial hemorrhage. Diagonstic Imaging: Xray Plain Films/CT/US/NM/MRI: chest Comments Date of Exam:03/23/21 CHEST 1 VIEW AP/PA ONLY INDICATION: Syncope. COMPARISON: 07/05/2019. FINDINGS: A single view of the chest demonstrates clear lungs bilaterally. The heart is normal. There is no pneumothorax. The osseous structures are normal. IMPRESSION: Negative chest. Reviewed: Reviewed by Me, Reviewed/Discussed Departure Impression Primary Impression: Syncope Qualified Codes: R55 - Syncope and collapse Additional Impression: Wernickes encephalopathy Disposition: HOME, SELF-CARE Condition: Stable Departure-Patient Inst. Referrals: RIMMA PEDRAZA APRN (PCP) Primary Care Physician [facility] (Family) Primary Care Physician Patient Instructions: Syncope (Fainting) (DC) Add. Discharge Instructions: Please continue your current treatment of vitamins and medicines prescribed by your primary care provider Please follow-up with your primary care provider ROSMERY BETANCUR DO Mar 23, 2021 09:00
[2021-03-23 09:43] LABS: BASOPHILS % (AUTO) 0 % (0-10); EOSINOPHILS # (AUTO) 0.1 10^3/uL (0.0-0.3); EOSINOPHILS % (AUTO) 1 % (0-10); HEMATOCRIT 42 % (35-52); HEMOGLOBIN 14.8 g/dL (11.5-16.0); LYMPHOCYTES # (AUTO) 1.3 10^3/uL (1.0-4.0); LYMPHOCYTES % (AUTO) 14 % (12-44); MEAN CORPUSCULAR HEMOGLOBIN 32 pg (25-34); MEAN CORPUSCULAR HGB CONC 35 g/dL (32-36); MEAN CORPUSCULAR VOLUME 92 fL (80-99); MEAN PLATELET VOLUME 10.5 fL (9.0-12.2); MONOCYTES # (AUTO) 0.6 10^3/uL (0.0-1.0); MONOCYTES % (AUTO) 6 % (0-12); NEUTROPHILS # (AUTO) 7.4 10^3/uL (1.8-7.8); NEUTROPHILS % (AUTO) 78 % (42-75); PLATELET COUNT 222 10^3/uL (130-400); WHITE BLOOD COUNT 9.5 10^3/uL (4.3-11.0)
[2021-03-23 09:45] VITALS: BP_SYST 101; BP_SYST 104; BP_SYST 98; BP_DIAS 72
--- NOTE | 2021-03-23 09:59 | Diagnostic Imaging Report ---
INDICATION: Syncope. TECHNIQUE: Routine non contrast-enhanced axial images were obtained from the skull base to the vertex. Auto Exposure Controls were utilized during the CT exam to meet ALARA standards for radiation dose reduction COMPARISON: 11/18/2020 FINDINGS: The ventricles and cortical sulci are diffusely prominent, compatible with age-related volume loss. There is no midline shift or mass-effect. No acute intra-axial hemorrhage is seen. There are no abnormal areas of increased or decreased density to suggest acute hemorrhage or edema. No extra-axial masses or collections are present. The bony calvarium is intact. The visualized paranasal sinuses are unremarkable. The mastoid air cells are clear. IMPRESSION: 1. No acute intracranial abnormality. No CT evidence of mass, acute infarct or intracranial hemorrhage. Dictated by: Dictated on workstation # [id number]
--- NOTE | 2021-03-23 10:01 | Diagnostic Imaging Report ---
INDICATION: Syncope. COMPARISON: 07/05/2019. FINDINGS: A single view of the chest demonstrates clear lungs bilaterally. The heart is normal. There is no pneumothorax. The osseous structures are normal. IMPRESSION: Negative chest. Dictated by: Dictated on workstation # [id number]
[2021-03-23 10:14] LABS: ALANINE AMINOTRANSFERASE 48 U/L (0-55); ALKALINE PHOSPHATASE 82 U/L (40-136); BILIRUBIN,TOTAL 0.6 MG/DL (0.1-1.0); BUN/CREATININE RATIO 14; CALCIUM 9.8 MG/DL (8.5-10.1); CARBON DIOXIDE 24 MMOL/L (21-32); CHLORIDE 98 MMOL/L (98-107); CREATININE SERUM 0.74 MG/DL (0.60-1.30); GFR ESTIMATED 90; GLUCOSE 131 MG/DL (70-105); POTASSIUM 3.8 MMOL/L (3.6-5.0); SODIUM 134 MMOL/L (135-145)
[2021-03-23 10:15] LABS: TOTAL PROTEIN 6.8 GM/DL (6.4-8.2)
[2021-03-23 11:38] LABS: BILIRUBIN,URINE NEGATIVE (NEGATIVE); CLARITY,URINE CLEAR; COLOR,URINE YELLOW; GLUCOSE, URINE (UA) NEGATIVE (NEGATIVE); KETONES,URINE TRACE (NEGATIVE); LEUKOCYTE ESTERASE ,URINE NEGATIVE (NEGATIVE); NITRITE,URINE NEGATIVE (NEGATIVE); PROTEIN,URINE NEGATIVE (NEGATIVE)
[2021-03-23 11:58] LABS: BACTERIA,URINE MODERATE /HPF
[2021-03-23 12:30] VITALS: BP 100/62
== END 2021-03-23 12:30 | disposition home or self-care (01) ==
LOC: EDUNIT# 08:56 → ER FS 08:57
DX: R55 Syncope and collapse (principal); E51.2 Wernicke's encephalopathy; I10 Essential (primary) hypertension; F41.9 Anxiety disorder, unspecified; F32.9 Major depressive disorder, single episode, unspecified; K21.9 Gastro-esophageal reflux disease without esophagitis; Z91.040 Latex allergy status; Z79.899 Other long term (current) drug therapy
CPT/HCPCS: 36415; 70450; 71045; 80053; 81000; 84484; 85025; 86141; 93005; 93041